=== PATIENT | male | born 1985 | race Caucasian/White ===

== ENCOUNTER 2023-04-01 19:09 | Emergency (ER) | payer BC ==
[2023-04-01] MEDS ORDERED: Ketorolac Tromethamine 30 MG/ML VIAL ONE (20:21)
[2023-04-01] MEDS ORDERED: Cyclobenzaprine 10 MG TAB ONE (20:21)
== END 2023-04-01 20:48 | disposition home or self-care (01) ==
LOC: ERS 19:09
DX: M50.222 Other cervical disc displacement at C5-C6 level (principal)
CPT/HCPCS: 96372; 99283; J1885